=== PATIENT | female | born 1990 ===

== ENCOUNTER 2017-02-25 20:52 | Emergency (ER) | payer OTHER ==
--- NOTE | 2017-02-25 21:45 | UC ---
Lower Extremity/Ankle HPI - HPI Summary HPI Summary: 26 yo female with L>R great toe pain x 1 week concerned her nails aren't growing right toes and fingers get cold easily - History of Current Complaint Chief Complaint: UCLowerExtremity Stated Complaint: BILATERAL BIG TOES ISSUE Time Seen by Provider: 02/25/17 21:36 Hx Obtained From: Patient Onset/Duration: Gradual Onset, Lasting Weeks Severity Initially: Mild Severity Currently: Mild Pain Intensity: 1 Pain Scale Used: 0-10 Numeric Aggravating Factor(s): Standing Alleviating Factor(s): Rest Able to Bear Weight: Yes - Allergies/Home Medications Allergies/Adverse Reactions: Allergies Allergy/AdvReac Type Severity Reaction Status Date / Time No Known Allergies Allergy Verified 02/25/17 21:42 Home Medications: Home Medications Benztropine TAB* [Cogentin TAB*] 1 mg PO BID 02/25/17 [History Confirmed ] Paliperidone Palmitate [Invega Sustenna] 1 inj MONTHLY 02/25/17 [History Confirmed 02/25/17] metFORMIN* [Glucophage 500 MG TAB *] 500 mg PO BID 02/25/17 [History Confirmed 02/25/17] PMH/Surg Hx/FS Hx/Imm Hx Previously Healthy: Yes - Family History Known Family History: Positive: Hypertension Review of Systems Constitutional: Negative Skin: Negative Eyes: Negative ENT: Negative Respiratory: Negative Cardiovascular: Negative Gastrointestinal: Negative Genitourinary: Negative Motor: Negative Neurovascular: Negative Musculoskeletal: Negative Neurological: Negative Psychological: Negative All Other Systems Reviewed And Are Negative: Yes Physical Exam Triage Information Reviewed: Yes Appearance: Well-Appearing, No Pain Distress, Well-Nourished Vital Signs Reviewed: Yes Eyes: Positive: Conjunctiva Clear ENT: Positive: Hearing grossly normal. Negative: Nasal congestion, Nasal drainage, Tonsillar exudate, Trismus Neck: Positive: Supple, Nontender Respiratory: Positive: Lungs clear, Normal breath sounds, No respiratory distress Cardiovascular: Positive: RRR, No Murmur Musculoskeletal: Positive: ROM Intact, No Edema Neurological: Positive: Alert Psychological Exam: Normal Skin Exam: Other - seeimage Skin: Positive: Other - Beau lines both great toe nails Lower Extremity Course/Dx - Differential Dx/Diagnosis Provider Diagnoses: BEAU Lines both great toe nails. ? cellulitis Discharge - Discharge Plan Condition: Stable Disposition: HOME Prescriptions: Cephalexin CAP* [Keflex CAP*] 500 mg PO QID #28 cap Patient Education Materials: Cellulitis (ED) Referrals: Karime Young MD [Primary Care Provider] - 1 Week Additional Instructions: The transvers lines on your nails are call Beau lines Causes include trauma/infection/Raynauds /reaction to meds and others we will start you on antibiotics the tips of your big toes were both bright red and may be infected Images Feet (Multiple View): 1 - erthyema
[2017-02-25 21:50] VITALS: BP 114/82
[2017-02-25] MEDS ORDERED: Cephalexin CAP* 500 MG PO ONE (22:10)
== END 2017-02-25 22:30 | disposition home or self-care (01) ==
LOC: UCCORT 20:52
DX: L60.4 Beau's lines (principal)
CPT/HCPCS: 99202; A9270-GY; G0463